=== PATIENT | male | born 2000 | race Caucasian/White ===

== ENCOUNTER 2023-02-24 11:37 | Emergency (ER) | payer OTHER ==
[2023-02-24 11:54] LABS: #Eosinphils 0.3 thou/uL (0.0-0.7); #Monocytes 0.5 thou/uL (0.11-0.59); #Neutrophils 3.6 thou/uL (1.40-6.50); %Basophils 0.5 % (0.0-1.0); %Eosinophils 4.3 % (0.0-10.0); %Monocytes 6.8 % (0.0-10.0); %Neutrophils 45.1 % (42.0-75.0); Hematocrit 45.1 % (42.0-52.0); Hemoglobin 15.2 g/dL (14.0-18.0); Mean Corpuscular HGB CONC 33.7 g/dL (32.0-36.0); Mean Corpuscular Hemoglobin 29.3 pg (27.0-31.0); Mean Corpuscular Volume 86.9 fl (78.0-98.0); Mean Platelet Volume 9.7 fL (7.4-10.4); Platelet Count 297 10x3/uL (130-400); RBC Distribution Width 12.1 % (11.5-14.5); Red Blood Cell (RBC) Count 5.19 mill/uL (4.70-6.10); White Blood Cell (WBC) Count 7.9 10x3/uL (4.8-10.8)
[2023-02-24] MEDS ORDERED: CEFAZOLIN 2 GM VIAL ONE (12:19)
[2023-02-24] MEDS ORDERED: Boostrix 0.5 ML (Tdap) VIAL (>/=7 yrs of age) ONE (12:19)
[2023-02-24 12:33] LABS: Prothrombin Time 13.1 sec (12.0-14.7)
[2023-02-24 12:36] LABS: PTT 22.7 sec (22.9-36.1)
[2023-02-24 13:24] LABS: Albumin 4.3 g/dL (3.5-5.0)
[2023-02-24 13:26] LABS: Calcium 9.5 mg/dL (7.8-10.44); Chloride 106 mmol/L (98-107); Potassium 4.1 mmol/L (3.5-5.1); Sodium 136 mmol/L (136-145)
[2023-02-24 13:27] LABS: Globulin 2.9 g/dL (2.4-3.5); Glucose 124 mg/dL (70-105); Protein, Total 7.2 g/dL (6.0-8.3)
[2023-02-24 13:28] LABS: Carbon Dioxide 20 mmol/L (22-29)
[2023-02-24 13:29] LABS: Bilirubin, Total 0.4 mg/dL (0.2-1.2)
[2023-02-24 13:30] LABS: Alkaline Phosphatase 70 U/L (40-110); Calc. Creatinine Clearance 0 mL/min (70-130); Estimated GFR 113
[2023-02-24 13:31] LABS: BUN (Urea Nitrogen) 11 mg/dL (8.9-20.6)
[2023-02-24 13:32] LABS: AST (SGOT) 35 U/L (5-34)
[2023-02-24 13:33] LABS: ALT (SGPT) 56 U/L (8-55)
[2023-02-24 13:35] LABS: Anion Gap 14 mmol/L (10-20)
[2023-02-24] MEDS ORDERED: Lidocaine 1% w/Epinephrine 1:100K 20 ML VIAL ONE (13:46)
== END 2023-02-24 14:48 | disposition home or self-care (01) ==
LOC: ERS 11:37
DX: S81.812A Laceration without foreign body, left lower leg, initial encounter (principal); V23.49XA Other motorcycle driver injured in collision with car, pick-up truck or van in traffic accident, initial encounter; Z87.891 Personal history of nicotine dependence
CPT/HCPCS: 12002; 70450; 71045; 72125; 80053; 85025; 85610; 85730; 90471; 90715; 96365